=== PATIENT | female | born 1960 | race Caucasian/White ===

== ENCOUNTER 2017-04-03 07:57 | Day surgery (SDC) | payer BC ==
[2017-03-28 11:35] VITALS: BMI 24.3
[2017-04-03] MEDS ORDERED: PROPOFOL 20 ML ONE ×2 (08:03)
[2017-04-03] MEDS ORDERED: LIDOCAINE HCL/PF 2% SDV 5ML VIAL ONE (08:03)
[2017-04-03 09:32] VITALS: TEMP 97.8
[2017-04-03 09:57] VITALS: BP 128/66; PULSE 68
--- NOTE | 2017-04-08 13:57 | PATH ---
Surgical Pathology Report Patient Name: YESSICA GILES [facility]. Rec. #: [id number] /Age/Gender: 1960 (Age: 56) / F Account: [id number] Location: Taken: 04/03/2017 Received: 04/03/2017 Reported: 04/08/2017 Physicians: Ney Morales M.D. Specimen(s) Received BX CECUM Clinical History History of colon cancer Polyp Final Diagnosis Cecum, polyp, polypectomy: Hyperplastic polyp. Electronically Signed Jessica Garcia M.D. Gross Description Received in formalin, labeled "cecum" is a diaz, irregular portion of soft tissue measuring 0.5 cm. in greatest dimension. The specimen is submitted in toto in one cassette. 04/04/201704/04/2017
== END 2017-04-03 09:55 | disposition home or self-care (01) ==
LOC: FASU-ENDO 07:57
PROVIDERS: ATTEND Internal Medicine Gastroenterology
PROC: 0DBH8ZX Excision of Cecum, Via Natural or Artificial Opening Endoscopic, Diagnostic (ICD-10-PCS; principal; 2017-04-03 08:57)
DX: Z85.038 Personal history of other malignant neoplasm of large intestine (principal); Z98.0 Intestinal bypass and anastomosis status; K63.5 Polyp of colon
CPT/HCPCS: 88305-TC

== ENCOUNTER 2022-01-31 07:17 | Day surgery (SDC) | payer BC ==
[2022-01-30 14:08] VITALS: BMI 24.3
[2022-01-31 07:45] VITALS: RESP 18
[2022-01-31] MEDS ORDERED: LIDOCAINE HCL/PF 2% SDV 5ML VIAL ONE (07:56)
[2022-01-31] MEDS ORDERED: PROPOFOL 120 ML ONE (07:56)
[2022-01-31 11:03] VITALS: BP 110/61; PULSE 74
[2022-01-31 11:07] VITALS: TEMP 98
== END 2022-01-31 11:00 | disposition home or self-care (01) ==
LOC: FASU-ENDO 07:17
PROVIDERS: ATTEND Internal Medicine Gastroenterology
PROC: 0DJD8ZZ Inspection of Lower Intestinal Tract, Via Natural or Artificial Opening Endoscopic (ICD-10-PCS; principal; 2022-01-31 09:48)
DX: Z12.11 Encounter for screening for malignant neoplasm of colon (principal); Z85.038 Personal history of other malignant neoplasm of large intestine; Z98.0 Intestinal bypass and anastomosis status
CPT/HCPCS: 87426; C9803-CS; U0003; U0005